=== PATIENT | male | born 1955 | race Caucasian/White ===

== ENCOUNTER 2017-06-07 05:31 | Day surgery (SDC) | payer OTHER ==
[~2017-06-07] VITALS: Ht 180.3 cm; Wt 88.2 kg
[~2017-06-07 05:31] MED LIST: ALEVE220 M4 PO; ASPIRIN EC81 MG PO; CALCIUM WITH V1 EAC2 PO; FISH OIL 1,2001 EAC4 PO; LIPITOR40 M1 PO; MAGNESIUM250 M2 PO; MELATONIN10 M6 PO; MULTI VITAMIN1 EAC2 PO; NO MEDICATIONS; POTASSIUM GLU2.5 MEQ; POTASSIUM GLUCONATE PO; PRINIVIL20 M1 PO; SELENIUM200 MC4 PO; SUPER B-50 COM1 EACH PO; TYLENOL PM EX-1 EAC4 PO; VITAMIN C1000 M1 PO; VITAMIN D3400 UNI5 PO; VITAMIN E400 UNI4 PO; ZINC50 M2 PO
== END 2017-06-07 12:40 ==
LOC: SRG 05:31 → SHSB 05:31 → ORW 07:27 → PACU 08:37 → SHSB 09:50 → SRG 12:40
PROC: 0FT44ZZ Resection of Gallbladder, Percutaneous Endoscopic Approach (ICD-10-PCS; principal; 2017-06-07)
PROC: BF12YZZ Fluoroscopy of Gallbladder using Other Contrast (ICD-10-PCS; 2017-06-07)
DX: K81.1 Chronic cholecystitis (principal); K82.4 Cholesterolosis of gallbladder; I10 Essential (primary) hypertension; M15.9 Polyosteoarthritis, unspecified; E78.5 Hyperlipidemia, unspecified; Z98.890 Other specified postprocedural states; Z79.899 Other long term (current) drug therapy
CPT/HCPCS: C1894; J0690; J2765; J3010; J7030; J7050; Q9966